=== PATIENT | female | born 1935 ===

== ENCOUNTER 2017-07-02 16:10 | Inpatient (IN) | payer MEDICARE, OTHER ==
--- NOTE | 2017-07-02 17:22 | ED PDOC ---
HPI: General Adult Time Seen by Provider: 07/02/17 16:37 Chief Complaint (Nursing): Abnormal Labs Chief Complaint (Provider): Abnormal Labs History Per: Patient History/Exam Limitations: no limitations Onset/Duration Of Symptoms: Days (x1) Additional Complaint(s): Isatu Garza is an 82 year old female with previous medical history of diabetes and hypertension, referred to the emergency department by PCP for an evaluation of abnormal labs done prior to arrival. Medical office noted elevation of BUN/ creatinine levels. Patient is asymptomatic and denies chest pain, shortness of breath, palpations or abdominal pain. PMD: Caitlin Davis MD Past Medical History Reviewed: Historical Data, Nursing Documentation, Vital Signs Vital Signs: Last Vital Signs Temp 98.1 F 07/02/17 16:24 Pulse 102 H 07/02/17 18:56 Resp 19 07/02/17 18:56 BP 129/69 07/02/17 18:56 Pulse Ox 96 07/02/17 18:33 - Medical History PMH: Diabetes, HTN - Surgical History Surgical History: No Surg Hx - Family History Family History: States: Unknown Family Hx - Social History Current smoker - smoking cessation education provided: No Ex-Smoker (has not smoked in the last 12 months): No Alcohol: None Drugs: Denies - Home Medications Home Medications: Ambulatory Orders Medication Instructions Recorded Naproxen [Naprosyn Tab] 375 mg PO BID PRN #20 tab 05/21/17 Atorvastatin [Lipitor] 40 mg PO HS 07/02/17 Dicyclomine [Bentyl] 20 mg PO DAILY 07/02/17 Metoprolol Succinate [Toprol XL] 100 mg PO DAILY 07/02/17 Omeprazole [Omeprazole] 40 mg PO DAILY 07/02/17 Ranitidine HCl [Zantac] 300 mg PO DAILY 07/02/17 amLODIPine [Norvasc] 5 mg PO BID 07/02/17 hydroCHLOROthiazide [Hydrodiuril] 25 mg PO DAILY 07/02/17 metFORMIN [glucOPHAGE] 500 mg PO BID 07/02/17 - Allergies Allergies/Adverse Reactions: Allergies Allergy/AdvReac Type Severity Reaction Status Date / Time No Known Allergies Allergy Verified 05/21/17 12:54 Review of Systems ROS Statement: Except As Marked, All Systems Reviewed And Found Negative Constitutional: Negative for: Fever, Chills Cardiovascular: Negative for: Chest Pain, Palpitations Respiratory: Negative for: Shortness of Breath Gastrointestinal: Negative for: Abdominal Pain Physical Exam - Reviewed Nursing Documentation Reviewed: Yes Vital Signs Reviewed: Yes - Physical Exam Appears: Positive for: Well, Non-toxic, No Acute Distress Head Exam: Positive for: ATRAUMATIC, NORMAL INSPECTION, NORMOCEPHALIC Skin: Positive for: Normal Color Eye Exam: Positive for: Normal appearance, EOMI, PERRL. Negative for: Nystagmus ENT: Positive for: Normal ENT Inspection Neck: Positive for: Normal, Painless ROM, Supple. Negative for: Decreased ROM Cardiovascular/Chest: Positive for: Regular Rate, Rhythm. Negative for: Chest Non Tender Respiratory: Positive for: Normal Breath Sounds, Accessory Muscle Use. Negative for: Decreased Breath Sounds, Respiratory Distress Gastrointestinal/Abdominal: Positive for: Normal Exam, Bowel Sounds, Soft. Negative for: Tenderness Extremity: Positive for: Normal ROM. Negative for: Tenderness, Pedal Edema, Deformity Neurologic/Psych: Positive for: Alert, Oriented - Laboratory Results Result Diagrams: 07/02/17 17:28 07/02/17 17:28 - ECG O2 Sat by Pulse Oximetry: 96 (RA) Pulse Ox Interpretation: Normal Medical Decision Making Medical Decision Making: Initial Impression: Abnormal bloodwork Initial Plan: * EKG * CMP * CBC Scribe Attestation: Documented by Va Zamudio, acting as a scribe for Avery Hernandez MD. Provider Scribe Attestation: All medical record entries made by the Scribe were at my direction and personally dictated by me. I have reviewed the chart and agree that the record accurately reflects my personal performance of the history, physical exam, medical decision making, and the department course for this patient. I have also personally directed, reviewed, and agree with the discharge instructions and disposition. Disposition - Clinical Impression Clinical Impression: Acute renal failure - Patient ED Disposition Is Patient to be Admitted: Yes - Disposition Disposition Time: 18:33 Condition: FAIR Forms: [employer] (Hebrew) - Pt Status Changed To: Hospital Disposition Of: Inpatient - Admit Certification Admit to Inpatient:: After my assessment, the patient will require hospitalization for at least two midnights. This is because of the severity of symptoms shown, intensity of services needed, and/or the medical risk in this patient being treated as an outpatient. - POA Present On Arrival: None
[2017-07-02 17:41] LABS: BASO # 0.1 K/uL (0.0-0.2); BASO % 0.6 % (0.0-2.0); EOS % 0.2 % (0.0-4.0); HEMATOCRIT 33.8 % (34.0-47.0); LYMPH # 1.1 K/uL (1.0-4.3); LYMPH % 9.3 % (20.0-40.0); MEAN CELL VOLUME 93.2 fl (81.0-99.0); MEAN CORPUSCULAR HEMOGLOBIN 29.2 pg (27.0-31.0); MEAN CORPUSCULAR HGB CONC 31.4 g/dL (33.0-37.0); MONO # 0.5 K/uL (0.0-0.8); MONO % 4.4 % (0.0-10.0); NEUT % 85.5 % (50.0-75.0); PLATELET COUNT 468 K/uL (130-400); RED CELL DISTRIBUTION WIDTH 14.4 % (11.5-14.5); WHITE BLOOD COUNT 11.7 K/uL (4.8-10.8)
[2017-07-02 18:03] LABS: NEUTROPHIL 84 % (42-75); TOTAL CELLS COUNTED 100
[2017-07-02 18:10] LABS: ALB/GLOB RATIO 1.3 (1.0-2.1); BILIRUBIN,TOTAL 0.4 mg/dl (0.2-1.3); CALCIUM 9.6 mg/dL (8.4-10.2); TOTAL PROTEIN 7.4 G/DL (6.3-8.2)
[2017-07-02 18:14] LABS: POTASSIUM 5.7 MMOL/L (3.6-5.0)
[2017-07-02] MEDS ORDERED: Insulin Regular 100 units/ml SC STA (18:20)
[2017-07-02] MEDS ORDERED: Dextrose 50% SYRINGE Inj (50 ml) IVP ONE (18:20)
[2017-07-02] MEDS ORDERED: Sodium Bicarbonate 7.5% (0.9 MEQ/ML) 50ML INJ IV ONE (18:20)
[2017-07-02] MEDS ORDERED: Albuterol 0.083% Inhal Sol (2.5 mg/3 mL) UD INH STA (18:22)
[2017-07-02] MEDS ORDERED: Sod Polystyrene Sulf 15 gm/60 ml Oral Susp PO ONE (18:23)
[2017-07-02] MEDS ORDERED: Sodium Chloride 0.9% 1,000 ML IV STA (18:32)
[2017-07-03] MEDS ORDERED: Influenza Vaccine 18yr & older 0.5 ML/45 MCG SYR IM ONE (06:00)
[2017-07-03 07:34] LABS: HEMATOCRIT 30.7 % (34.0-47.0); MEAN CELL VOLUME 92.9 fl (81.0-99.0); MEAN CORPUSCULAR HEMOGLOBIN 29.7 pg (27.0-31.0); RED CELL DISTRIBUTION WIDTH 14.5 % (11.5-14.5)
[2017-07-03 07:48] LABS: ALB/GLOB RATIO 1.3 (1.0-2.1); BILIRUBIN,TOTAL 0.6 mg/dl (0.2-1.3); CALCIUM 9.4 mg/dL (8.4-10.2); POTASSIUM 5.4 MMOL/L (3.6-5.0)
[2017-07-03 08:03] LABS: T4 9.94 ug/dl (5.5-11.0)
[2017-07-03 08:16] LABS: THYROID STIMULATING HORMONE 1.62 mIU/ML (0.46-4.68)
[2017-07-03] MEDS: Metoprolol Succinate 100 mg XL Tab PO SCH (08:26)
[2017-07-03] MEDS: Enoxaparin 30 mg Syringe SC SCH (08:28)
[2017-07-03] MEDS: Pantoprazole 40 mg EC Tab PO SCH (08:28)
[2017-07-03] MEDS: Sodium Chloride 0.45% 1,000 ML IV SCH ×2 (12:17→20:46)
--- NOTE | 2017-07-03 13:28 | CARD ---
APPROVED REPORT EKG Measurement Heart [id number] DC [id number] <Conclusion> Sinus tachycardia with premature atrial complexes Otherwise normal ECG
--- NOTE | 2017-07-03 15:57 | HP ---
CHIEF COMPLAINT: Abnormal labs. HISTORY OF PRESENT ILLNESS: This is an 82-year-old female with known case of diabetes, hypertension, renal insufficiency, who was seen by family care physician, *------* and had some blood test, which are abnormality, so the patient was sent to the hospital and was admitted for further management. REVIEW OF SYSTEMS: Review of system at this time is negative for headache, dizziness, syncope, loss of consciousness, chest pain, shortness of breath, nausea, vomiting, diarrhea, constipation or any new joint or extremity pain. Review of systems of all other organ systems is unremarkable. PAST MEDICAL HISTORY: Significant for diabetes, hypertension, renal insufficiency. PAST SURGICAL HISTORY: Unremarkable. PERSONAL HISTORY: The patient is currently nonsmoker, nondrinker and no substance abuse. MEDICATIONS: The patient is on multiple medications, which is as per reconciliation sheet, which was reviewed and ordered. ALLERGIES: THE PATIENT IS NOT ALLERGIC TO ANY MEDICATIONS. FAMILY HISTORY: Noncontributory. PHYSICAL EXAMINATION GENERAL: Well-built, well-nourished, 82-year-old female, in no acute distress. VITAL SIGNS: Temperature 98.2, pulse 87, respirations 18, blood pressure 125/60. HEENT: Pupils are reacting to light. NECK: No JVD. No thyromegaly. No lymphadenopathy. No nystagmus. Normocephalic and atraumatic skull. HEART: S1 and S2 normal, regular. No significant murmur, gallop, or rub is heard. LUNGS: Shows good bilateral air exchange. No rales or rhonchi. ABDOMEN: Soft, nontender. No organomegaly. No fluid. Bowel sounds are plus. EXTERNAL GENITALIA AND RECTAL: Deferred on this patient. EXTREMITIES: No edema. No calf swelling. No tenderness. No acute ischemia. CENTRAL NERVOUS SYSTEM: Essentially unchanged and there is no sign of any acute gross focal motor or sensory neurological deficit. DIAGNOSTIC DATA: Available diagnostic data reviewed. WBC 8.7, hemoglobin 9.8, hematocrit 30.7, platelet 390. Sodium 148, potassium 5.4, chloride 112, bicarbonate 26, BUN 45, creatinine 1.3. SMA-12 is unremarkable. Telemetry monitoring does not reveal any significant arrhythmias. ADMITTING IMPRESSION: Acute renal failure, type 2 diabetes, hypertension, electrolyte imbalance, elevated potassium. PLAN: As ordered. Case and plan discussed with the patient. Claude Kinsey MD
[2017-07-03 16:49] LABS: VITAMIN D 25 OH TOTAL 32.5 NG/ML (30.0-100.0)
[2017-07-03 17:38] LABS: FOLATE > 20.0 ng/mL
[2017-07-03] MEDS: Insulin Regular 100 units/ml SC SCH (22:08)
[2017-07-04] MEDS: Insulin Regular 100 units/ml SC SCH ×3 (06:37→21:27)
[2017-07-04] MEDS: Sodium Chloride 0.45% 1,000 ML IV SCH (06:43)
[2017-07-04 06:52] LABS: MEAN CELL VOLUME 92.9 fl (81.0-99.0); MEAN CORPUSCULAR HEMOGLOBIN 29.6 pg (27.0-31.0); MEAN CORPUSCULAR HGB CONC 31.9 g/dL (33.0-37.0); RED CELL DISTRIBUTION WIDTH 14.3 % (11.5-14.5); WHITE BLOOD COUNT 8.9 K/uL (4.8-10.8)
[2017-07-04 07:13] LABS: ALB/GLOB RATIO 1.2 (1.0-2.1); BILIRUBIN,TOTAL 0.6 mg/dl (0.2-1.3); CALCIUM 8.4 mg/dL (8.4-10.2); TOTAL PROTEIN 5.7 G/DL (6.3-8.2)
[2017-07-04] MEDS: Enoxaparin 30 mg Syringe SC SCH (09:15)
[2017-07-04] MEDS: Pantoprazole 40 mg EC Tab PO SCH (09:15)
[2017-07-04] MEDS: Metoprolol Succinate 100 mg XL Tab PO SCH (09:16)
[2017-07-04 10:51] LABS: TOTAL PROTEIN, SERUM 6.6 g/dL (6.1-8.1)
--- NOTE | 2017-07-04 15:09 | PN ---
DATE: 07/04/2017 NEPHROLOGY FOLLOWUP CHIEF COMPLAINT: "None at this time, I feel good." HISTORY OF PRESENT ILLNESS/REVIEW OF SYSTEMS: Overnight events noted. The patient remained stable. Denies any complaints. Denies chest pain, palpitation, shortness of breath. She remained stable. PHYSICAL EXAMINATION: VITAL SIGNS: She is afebrile, pulse 66, blood pressure 130/59. LUNGS: Bilateral vesicular breath sounds clear, bilateral air entry normal and symmetrical. CARDIOVASCULAR: S1 and S2 normal. No murmurs. ABDOMEN: Soft and nontender. No organomegaly could be appreciated. EXTREMITIES: No edema. SKIN: No rashes or ulcerations. LYMPHATIC: No lymphadenopathy in neck. HEMATOLOGY: No active bleeding. NEUROLOGIC: A and O x3, no focal deficit. Moving all four extremities. Strength and sensation intact. LABORATORY DATA: Workup showed white blood cell count of 8.9, hemoglobin 9.2, and platelet count 351. Sodium is 140, potassium is 5, creatinine is 1.5, which is improved. SPEP kappa and lambda chains are all pending. The patient is also scheduled to get ultrasound of her kidneys today. MEDICATIONS: Current medications also reviewed. ASSESSMENT: 1. Acute kidney injury, likely evident also by dehydration and hypernatremia and has resolved. The patient probably has some underlying chronic kidney disease stage III. 2. Hypertension, under good control. 3. Diabetes mellitus. 4. Hypernatremia has improved. 5. Hyperkalemia has improved. 6. Mild anemia. RECOMMENDATIONS: Renal function is improved. We will discontinue IV fluid. Continue antihypertensive as ordered. We will avoid LULA inhibitor and ARB at this time because of mildly elevated potassium and tendency of hyperkalemia. I have also ordered iron supplements for her. Further followup can be done as an outpatient and results can be followed in the office. The patient is stable for discharge from a nephro perspective. The patient is to follow in one to two weeks post discharge. All questions have answered. Rnye Hickey MD
--- NOTE | 2017-07-05 00:56 | PN ---
DATE: 07/04/2017 SUBJECTIVE: The patient seen and examined. Interim events noted. Consults noted and appreciated. The patient remains in progressive care unit, on telemetry monitoring. Denies any specific complaints. No chest pain. No shortness of breath. PHYSICAL EXAMINATION: GENERAL: The patient is in no acute distress. VITAL SIGNS: Stable. HEART: S1 and S2, normal and regular. LUNGS: Good bilateral air exchange. ABDOMEN: Soft and nontender. EXTREMITIES: No edema. No calf swelling. No tenderness. No acute ischemia. CENTRAL NERVOUS SYSTEMS: Essentially unchanged. DIAGNOSTIC DATA: Available diagnostic data reviewed. Telemetry monitoring does not show any significant arrhythmia. IMPRESSION: Overall, the patient's general medical condition is stable. PLAN: As ordered. Claude Kinsey MD
[2017-07-05 04:54] VITALS: RESP 18
[2017-07-05 05:41] LABS: MEAN CELL VOLUME 92.3 fl (81.0-99.0); MEAN CORPUSCULAR HEMOGLOBIN 30.3 pg (27.0-31.0); MEAN CORPUSCULAR HGB CONC 32.8 g/dL (33.0-37.0)
[2017-07-05 06:00] LABS: ALB/GLOB RATIO 1.2 (1.0-2.1); BILIRUBIN,TOTAL 0.3 mg/dl (0.2-1.3); CALCIUM 8.2 mg/dL (8.4-10.2); POTASSIUM 4.9 MMOL/L (3.6-5.0); TOTAL PROTEIN 5.5 G/DL (6.3-8.2)
[2017-07-05] MEDS: Insulin Regular 100 units/ml SC SCH ×2 (06:35→12:07)
--- NOTE | 2017-07-05 07:05 | US ---
PROCEDURE: Ultrasound of the Kidneys HISTORY: [facility] COMPARISON: 04/25/2010. TECHNIQUE: Sonogram of the kidneys. FINDINGS: RIGHT KIDNEY: Measures: 4.7 x 5.4 x 9.5 cm. Normal in size, contour and echogenicity. No stone, solid mass lesion or hydronephrosis visualized. LEFT KIDNEY: Measures: 4.9 x 5 x 8.9 cm. Normal in size, contour and echogenicity. No stone, solid mass lesion or hydronephrosis visualized. OTHER FINDINGS: None. IMPRESSION: No acute findings related to/accounting for the clinical presentation. No significant interval change compared to the prior examination(s).
--- NOTE | 2017-07-05 07:23 | PN ---
DATE: 07/05/2017 SUBJECTIVE: The patient seen and examined. Interim events noted. Consults noted and appreciated. The patient remains in progressive care unit, on telemetry monitoring. The patient feels okay. Denies any chest pain or shortness of breath. PHYSICAL EXAMINATION GENERAL: The patient is in no acute distress. VITAL SIGNS: Stable. HEART: S1 and S2 normal and regular. LUNGS: Good bilateral air exchange. ABDOMEN: Soft and nontender. EXTREMITIES: No edema. No calf swelling. No tenderness. No acute ischemia. CENTRAL NERVOUS SYSTEMS: Essentially unchanged. DIAGNOSTIC DATA: Available diagnostic date reviewed. Telemetry monitoring does not show any significant arrhythmia. Today's labs are pending. The patient's last BUN is 38, creatinine is 1.6. ASSESSMENT AND PLAN: Case was discussed with [employer]usiness internship yesterday. We will follow up today's labs, which are stable. The patient is possibly discharging home. Case and plan discussed with the patient. Claude Kinsey MD
[2017-07-05] MEDS: Metoprolol Succinate 100 mg XL Tab PO SCH (09:10)
[2017-07-05] MEDS: Pantoprazole 40 mg EC Tab PO SCH (09:10)
[2017-07-05] MEDS: Enoxaparin 30 mg Syringe SC SCH (09:11)
--- NOTE | 2017-07-05 09:42 | CP.PCM.PN ---
Subjective - Date & Time of Evaluation Date of Evaluation: 07/05/17 Time of Evaluation: 09:40 - Subjective Subjective: Patient sitting up in the chair feels good No acute event reported overnight Patient appeared to be comfortable appetite is good Objective - Vital Signs/Intake and Output Vital Signs (last 24 hours): Temp Pulse Resp BP Pulse Ox 98.0 F 69 18 137/69 97 07/05/17 08:00 07/05/17 09:10 07/05/17 08:00 07/05/17 09:10 07/05/17 08:00 - Medications Medications: Current Medications Amlodipine Besylate (Norvasc) 5 mg PO BID [facility] Last Admin: 07/05/17 09:10 Dose: 5 mg Atorvastatin Calcium (Lipitor) 40 mg PO HS [facility] Last Admin: 07/04/17 21:28 Dose: 40 mg Cyanocobalamin (Vitamin B12 1000 Mcg/Ml Inj) 1,000 mcg IM DAILY [facility] Last Admin: 07/05/17 09:11 Dose: 1,000 mcg Dicyclomine HCl (Bentyl) 20 mg PO DAILY [facility] Last Admin: 07/05/17 09:10 Dose: 20 mg Enoxaparin Sodium (Lovenox) 30 mg SC DAILY [facility] PRN Reason: Protocol Last Admin: 07/05/17 09:11 Dose: 30 mg Famotidine (Pepcid) 40 mg PO HS [facility] Last Admin: 07/04/17 21:28 Dose: 40 mg Ferrous Sulfate (Feosol) 325 mg PO TID [facility] Last Admin: 07/05/17 09:11 Dose: 325 mg Insulin Human Regular (Humulin R) 0 units SC [facility] PRN Reason: Protocol Last Admin: 07/05/17 06:35 Dose: Not Given Metformin HCl (Glucophage) 500 mg PO BID [facility] Last Admin: 07/05/17 09:11 Dose: 500 mg Metoprolol Succinate (Toprol Xl) 100 mg PO DAILY [facility] Last Admin: 07/05/17 09:10 Dose: 100 mg Pantoprazole Sodium (Protonix Ec Tab) 40 mg PO DAILY [facility] Last Admin: 07/05/17 09:10 Dose: 40 mg - Labs Labs: 07/05/17 04:15 07/05/17 04:15 - Constitutional Appears: No Acute Distress - ENT Exam ENT Exam: Mucous Membranes Moist - Respiratory Exam Respiratory Exam: Clear to Ausculation Bilateral, NORMAL BREATHING PATTERN. absent: Chest Wall Tenderness - Cardiovascular Exam Cardiovascular Exam: absent: JVD, Rubs - GI/Abdominal Exam GI & Abdominal Exam: Normal Bowel Sounds - Extremities Exam Extremities Exam: absent: Calf Tenderness - Back Exam Back Exam: absent: CVA tenderness (L), CVA tenderness (R) - Neurological Exam Neurological Exam: Alert Assessment and Plan (1) Acute renal failure Assessment & Plan: Patient appears to have acute kidney injury which has been improving serum creatinine coming down. The etiology is not clear perhaps dehydration? Continue monitoring kidney function Ultrasound of the kidney noted to be normal echogenicity and normal in size Order Spot urine for sodium osmolality and creatinine and protein Status: Acute
--- NOTE | 2017-07-05 11:42 | CON ---
INITIAL NEPHROLOGY CONSULTATION DATE: CHIEF COMPLIANT: None at this time. REASON FOR CONSULTATION: Acute kidney injury and hyperkalemia. HPI: The patient is an 82-year-old female with history of diabetes diagnosed less than a year ago, also history of hypertension diagnosed for last few years, also history of hyperlipidemia who was referred by PCU because of abnormal labs. The patient was found to have elevated BUN and creatinine, also hyperkalemia and has patient being evaluated for further management. The patient at this time feels well. Denies any nausea, vomiting, chest pain, palpitation, shortness of breath, cough, phlegm, fevers or chills. No urinary complaint. Has been taking naproxen on as needed basis. PAST MEDICAL HISTORY: Notable for diabetes mellitus, hypertension. PAST SURGICAL HISTORY: Has no past surgical history. SOCIAL HISTORY: No smoker. No alcohol abuse. No drug abuse. FAMILY HISTORY: No history of CKD, hemodialysis. ALLERGY: THE PATIENT DOES NOT HAVE ANY MEDICATION ALLERGIES. REVIEW OF SYSTEMS: Overall, patient feels well. No weight changes. Denied any fever or chills. Neurologic: Denied any headache, tingling, numbness, or dizziness. Eyes: Denies any watery or itchy eyes. ENT: Denies any ear pain, sore throat, congestion. Cardiovascular: Denies any chest pain, palpitations. Respiratory: Denies any shortness of breath, cough, phlegm, fever, chills. GI: Denies any nausea, vomiting, constipation, diarrhea, change in bowel habit. Genitourinary: Denies any painful burning urination, no blood in the urine. Denies any change in urinary frequency, urgency. Denies any change in the urine amount. Extremities: Denies any rash or ulceration. Denies any swelling joint pain, joint swelling. Psychiatric: Denies any depression, hallucinations. Lymphatic: Denies any lymph node swelling. Hematologic: Denies any active bleeding. PHYSICAL EXAMINATION: GENERAL: The patient is seen in her room. She is appearing comfortable, not in acute distress. VITAL SIGNS: Afebrile. Pulse is 87, blood pressure 125/68, saturation is well maintained. NEUROLOGIC: The patient is alert, oriented x3. No focal deficits. Moving all four extremities. Strength is intact. She is ambulatory. EYES: Bilateral pupils equal and reactive. Conjunctivae normal, no icterus and pallor. ENT: Oral cavity normal. Normal mucosa, appears moist. No thrush. No rash or ulceration or lesions. NECK: Supple. No lymphadenopathy in neck. There is no bruits. There is no thyromegaly. CARDIOVASCULAR: S1 and S2 normal. No murmur could be appreciated. No rub or gallop. ABDOMEN: Soft and nontender. No organomegaly could be appreciated. RESPIRATORY: Bilateral vesicular breath sounds clear. Bilateral air entry normal. EXTREMITIES: No edema. SKIN: No rashes, ulceration on palpation. Normal turgor. PSYCHIATRIC: The patient is pleasant and cooperative. Judgment is appropriate. Affect is normal. Insight is present. LYMPHATIC: No lymphadenopathy in neck. HEMATOLOGIC: No active bleeding. WORKUP: Her white blood cell count is 8, hemoglobin 9.8, platelet count is 390. Sodium is 148, potassium 5.4, bicarb is 26, creatinine is 1.8, improved from 2.0. Her glucose is 88, albumin is 3.4. TSH is 1.6. LDL is 61. CURRENT MEDICATIONS: Reviewed, which showed the patient is on amlodipine 5 mg b.i.d., Lipitor 40 mg per day, Lovenox, Pepcid, metformin, Toprol XL, pantoprazole. ASSESSMENT: 1. Elevated creatinine with improvement with IV fluids likely this is due to history of acute kidney injury, also with mild hypernatremia. 2. Mild hyperkalemia likely due to acute kidney injury and she is also using non-steroidal anti-inflammatory drugs frequently at home. 3. Hypertension, well controlled. 4. Diabetes mellitus. 5. Anemia. RECOMMENDATIONS: We will change her to half normal saline considering hypernatremia. Avoid nephrotoxin, NSAIDs and contrast. We will also defer any LULA inhibitor or ARB considering hyperkalemia and acute kidney injury. We will check her urine studies. Renal sonogram. Also check for anemia workup as well. We will check her vitamin D level and we will check her PTH to assess the chronicity of her kidney injury and otherwise continue her antihypertensives. All questions were answered. Thank you for the consult. Please call if any questions. Ryne Hickey MD
[2017-07-05 12:16] VITALS: BP 120/57; PULSE 63; TEMP 98.3; O2SAT 98
[2017-07-05 14:38] LABS: RBC URINE 1 /hpf (0-3); URINE BACTERIA RARE (<OCC); URINE BILIRUBIN NEGATIVE (NEGATIVE); URINE BLOOD NEGATIVE (NEGATIVE); URINE COLOR YELLOW (YELLOW); URINE GLUCOSE (UA) NEG (Normal); URINE KETONE NEGATIVE (NEGATIVE); URINE LEUKOCYTE ESTERASE SMALL Leu/uL (Negative); URINE PROTEIN 100 mg/dL (NEGATIVE); URINE UROBILINOGEN 0.2-1.0 mg/dL (0.2-1.0); WBC URINE 12 /hpf (0-5)
[2017-07-06 09:23] LABS: CREATININE, RANDOM URINE 151 mg/dL (20-320)
[2017-07-06 12:29] LABS: BETA 1 GLOBULIN 0.5 g/dL (0.4-0.6); BETA 2 GLOBULIN 0.3 g/dL (0.2-0.5)
[2017-07-06 18:47] LABS: KAPPA QUANTITATIVE 263 mg/dL (176-443); KAPPA/LAMDA QUANTITATIVE RATIO 2.68 (1.29-2.55); LAMBDA QUANTITATIVE 98 mg/dL (91-240)
== END 2017-07-05 14:00 | disposition home or self-care (01) | DRG 683 ==
LOC: H.ER 16:10 → H.ERHOLD 19:01 → H.TEL 22:43
PROVIDERS: ADMIT Internal Medicine; ATTEND Internal Medicine
PROC: 3E0234Z Introduction of Serum, Toxoid and Vaccine into Muscle, Percutaneous Approach (ICD-10-PCS; principal; 2017-07-02)
DX: N17.9 Acute kidney failure, unspecified (principal); E87.0 Hyperosmolality and hypernatremia; E11.22 Type 2 diabetes mellitus with diabetic chronic kidney disease; E87.5 Hyperkalemia; D64.9 Anemia, unspecified; N18.3 Chronic kidney disease, stage 3 (moderate); I12.9 Hypertensive chronic kidney disease with stage 1 through stage 4 chronic kidney disease, or unspecified chronic kidney disease; E78.5 Hyperlipidemia, unspecified; E86.0 Dehydration; Z23 Encounter for immunization